=== PATIENT | male | born 1955 | race Caucasian/White ===

== ENCOUNTER 2021-08-22 19:11 | Observation (INO) | payer MEDICARE, OTHER ==
[~2021-08-22] VITALS: Ht 170.2 cm; Wt 85.7 kg
[2021-08-22] MEDS ORDERED: METOPROLOL TARTRATE INJ 1 MG/ML VIAL IV STA ×2 (19:22→21:32)
[2021-08-22] MEDS ORDERED: DIGOXIN INJ 0.25 MG/ML 2 ML AMP IV STA (19:22)
[2021-08-22] MEDS ORDERED: DILTIAZEM HCL 5 MG/ML 5 ML VIAL IV STA ×2 (19:22→21:32)
[2021-08-22 20:33] LABS: BASOPHILS # (AUTO) 0.1 (0.0-0.1); BASOPHILS % 0.5 % (0.0-1.0); EOSINOPHILS % 0.3 % (0.0-6.0); HEMATOCRIT 49.2 % (38.2-49.6); HEMOGLOBIN 17.4 g/dL (14.0-18.0); LYMPHOCYTES # (AUTO) 2.6 (1.0-3.2); LYMPHOCYTES % 20.3 % (18.0-39.1); MEAN CORPUSCULAR HEMOGLOBIN 31.9 pg (28-32); MEAN CORPUSCULAR HGB CONC 35.4 g/dL (31-35); MEAN CORPUSCULAR VOLUME 90.3 fL (81-99); MONOCYTES # (AUTO) 1.1 (0.2-0.8); MONOCYTES % 8.6 % (4.4-11.3); PLATELET COUNT 202 x10e3/uL (140-360); RED BLOOD COUNT 5.45 x10e6/uL (4.3-5.7); RED CELL DISTRIBUTION WIDTH 11.8 % (11.7-14.4)
[2021-08-22 20:47] LABS: ANION GAP 16.3 mmol/L (8-16); CALCIUM 9.6 mg/dL (8.4-10.2); CREATININE, SERUM 1.4 mg/dL (0.72-1.25); POTASSIUM 4.3 mmol/L (3.5-5.1)
[2021-08-22 20:53] LABS: CREATINE KINASE MB 2.2 ng/mL (0-5.0)
[2021-08-22] MEDS ORDERED: ONDANSETRON HCL INJ 2MG/ML 2ML 2 MG/ML VIAL IV PRN (21:00)
[2021-08-22] MEDS ORDERED: ASPIRIN 81 MG CHEW TAB PO ONE (21:00)
[2021-08-22] MEDS ORDERED: Morphine 4mg Syringe 4 MG/ML INJ IV PRN (21:00)
[2021-08-22] MEDS: SODIUM CHLORIDE 0.9% 1000ML 1,000 ML IV SCH (22:00)
[2021-08-22] MEDS ORDERED: SODIUM CHLORIDE 0.9% 1000ML 1,000 ML IV ONE (22:00)
[2021-08-22] MEDS ORDERED: ATORVASTATIN CA20 MG PO (22:24)
[2021-08-22] MEDS ORDERED: XARELTO20 MG PO (22:24)
[2021-08-22] MEDS ORDERED: FUROSEMIDE20 MG PO (22:24)
[2021-08-22] MEDS ORDERED: METOPROLOL SUC100 MG PO (22:24)
[2021-08-22] MEDS ORDERED: DIGOXIN125 MCG PO (22:24)
[2021-08-22] MEDS ORDERED: TRADJENTA5 MG PO (22:24)
[2021-08-22] MEDS ORDERED: LISINOPRIL5 MG PO (22:24)
[2021-08-23] VITALS: BP_SYST 101; BP_SYST 120; BP_DIAS 61; BP_DIAS 73
[2021-08-23] MEDS ORDERED: METOPROLOL TARTRATE INJ 1 MG/ML VIAL IV PRN (00:45)
[2021-08-23] MEDS ORDERED: TEMAZEPAM 7.5 MG CAP PO PRN (00:45)
[2021-08-23] MEDS ORDERED: ACETAMINOPHEN 325 MG TAB PO PRN (00:45)
[2021-08-23] MEDS ORDERED: POLYETHYLENE GLYCOL 3350 17 GM PACK PO PRN (00:45)
[2021-08-23 04:00] VITALS: BP 107/82
[2021-08-23 04:59] LABS: BASOPHILS % 0.4 % (0.0-1.0); EOSINOPHILS # (AUTO) 0.1 (0.0-0.4); HEMATOCRIT 42.1 % (38.2-49.6); HEMOGLOBIN 14.9 g/dL (14.0-18.0); LYMPHOCYTES # (AUTO) 2.9 (1.0-3.2); LYMPHOCYTES % 31.7 % (18.0-39.1); MEAN CORPUSCULAR HEMOGLOBIN 32.3 pg (28-32); MEAN CORPUSCULAR HGB CONC 35.4 g/dL (31-35); MEAN CORPUSCULAR VOLUME 91.3 fL (81-99); MONOCYTES # (AUTO) 1.1 (0.2-0.8); MONOCYTES % 12.2 % (4.4-11.3); NEUTROPHILS % 54.6 % (38.7-80.0); PLATELET COUNT 161 x10e3/uL (140-360); RED BLOOD COUNT 4.61 x10e6/uL (4.3-5.7); RED CELL DISTRIBUTION WIDTH 11.9 % (11.7-14.4)
[2021-08-23] MEDS: SODIUM CHLORIDE 0.9% 1000ML 1,000 ML IV SCH ×2 (05:21→13:24)
[2021-08-23 05:29] LABS: ALBUMIN 3.1 g/dL (3.5-5.0); ANION GAP 12.2 mmol/L (8-16); CREATININE, SERUM 1.15 mg/dL (0.72-1.25); POTASSIUM 4.2 mmol/L (3.5-5.1)
[2021-08-23 05:44] LABS: CHOL/HDL RATIO 6.5 (3.9-4.7); MAGNESIUM 1.8 MG/DL (1.3-2.1); PHOSPHORUS 2.8 MG/DL (2.3-4.7)
[2021-08-23 06:04] LABS: THYROID STIMULATING HORMONE 6.313 uIU/mL (0.350-4.940)
[2021-08-23] MEDS ORDERED: FAMOTIDINE 20 MG TAB PO SCH (07:30)
[2021-08-23 08:00] VITALS: BP 107/82
[2021-08-23 08:18] VITALS: BP 118/80
[2021-08-23] MEDS ORDERED: DOCUSATE SODIUM 100 MG CAP PO SCH (09:00)
[2021-08-23 12:08] VITALS: BP 131/82
[2021-08-23 13:51] LABS: CREATINE KINASE 147 IU/L (30-200)
== END 2021-08-23 14:36 | disposition home or self-care (01) ==
LOC: ER 19:20 → ERHOLD 21:00 → INTOOBSV 21:00 → MED/SURG2 23:56
PROVIDERS: ADMIT Internal Medicine; ATTEND Internal Medicine
DX: I48.91 Unspecified atrial fibrillation (principal); E78.2 Mixed hyperlipidemia; R94.6 Abnormal results of thyroid function studies; Z79.01 Long term (current) use of anticoagulants; I10 Essential (primary) hypertension; I25.2 Old myocardial infarction; I25.10 Atherosclerotic heart disease of native coronary artery without angina pectoris; Z20.822 Contact with and (suspected) exposure to COVID-19
CPT/HCPCS: 36415 ×2; 71045; 80053 ×2; 80061; 82550 ×2; 82553 ×2; 82948; 83036; 83735; 83880; 84100; 84443; 84484 ×2; 85025 ×2; 93005 ×2; 93306; 94799 ×2; 99284; G0378 ×2; J1160; J7030 ×2; U0002